=== PATIENT | female | born 2000 | race Caucasian/White ===

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

== ENCOUNTER 2018-12-15 05:44 | Day surgery (SDC) | payer OTHER ==
[2018-12-03 10:54] VITALS: BMI 25.0
--- NOTE | 2018-12-15 09:13 | HP ---
Satellite [facility] - Chief Complaint Chief Complaint: internal derangement left knee History Source: Patient - Past Medical History Allergies/Adverse Reactions: Allergies Allergy/AdvReac Type Severity Reaction Status Date / Time No Known Allergies Allergy Verified 12/15/18 08:30 ...LMP Comment: UNSURE OF LMP, ON DEPRO-PROVERA - Current Medications Current Medications: Home Medications Medication Instructions Recorded Albuterol Sulfate Inhaler - 1 - 2 inh PO QID PRN 09/22/14 [Ventolin HFA Inhaler -] Deproprovera 1 cartridge IM ASDIR 12/03/18 Satellite Physical Exam - Physical Examination Vital Signs: Vital Signs Period Temp Pulse Resp BP Sys/Bone Pulse Ox Last 24 Hr 98.4 F-98.4 F 75-75 20-20 116-116/64-64 98 Extremities: Other (+ joint line tenderness) Satellite Impression/Plan - Impression/Plan Impression: internal derangeemnt left knee Operative Procedure: arthroscopy left knee Date to be Performed: 12/15/18
[2018-12-15] MEDS ORDERED: MIDAZOLAM HCL 2 MG/2 ML SINGLE DOSE VIAL ONE (09:19)
[2018-12-15] MEDS ORDERED: PROPOFOL 20 ML ONE (09:19)
[2018-12-15] MEDS ORDERED: LIDOCAINE HCL/PF 2% SDV 5ML VIAL ONE (09:21)
[2018-12-15] MEDS ORDERED: KETOROLAC TROMETHAMINE 30 MG/1 ML VIAL ONE (09:21)
[2018-12-15] MEDS ORDERED: DEXAMETHASONE SOD PHOSPHATE 4 MG/1 ML VIAL ONE (09:21)
[2018-12-15] MEDS ORDERED: ONDANSETRON 4 MG/2 ML VIAL IVPUSH PRN (09:31)
[2018-12-15] MEDS ORDERED: oxyCODONE HCL 5 MG TABLET PO PRN (09:31)
[2018-12-15] MEDS ORDERED: BUPIVACAINE HCL/PF 0.5% (5MG/ML) 10 ML VIAL ONE ×2 (09:35→12:36)
[2018-12-15] MEDS ORDERED: LIDOCAINE 1%-EPI 1:100,000 30 ML MDV IJ ONE (09:35)
[2018-12-15] MEDS ORDERED: LACTATED RINGERS SOLUTION 1,000 ML IV SCH (09:45)
[2018-12-15] MEDS ORDERED: BUPIVACAINE HCL/PF (5 MG/ML) 30 ML VIAL IJ ONE (10:04)
[2018-12-15] MEDS ORDERED: LIDOCAINE 1%/EPI 1:100000 (20 ML MULTI DOSE VIAL) IJ ONE (10:04)
--- NOTE | 2018-12-15 11:14 | OP ---
DATE OF OPERATION: 12/15/2018 PREOPERATIVE DIAGNOSIS: Internal derangement of the left knee. POSTOPERATIVE DIAGNOSIS: Internal derangement of the left knee. PROCEDURE: Left knee arthroscopy with synovectomy. SURGICAL ATTENDING: Donato Taylor MD ANESTHESIA: General with LMA. CLOSURE: Nylon 4-0. COMPLICATIONS: None. CONDITION: To recovery room in stable condition. DESCRIPTION OF OPERATIVE PROCEDURE: Patient taken to the operating room on December 15, 2018. General anesthesia with LMA was administered by the anesthesiologist. Left lower extremity was prepped and draped in the usual sterile fashion. The medial and lateral infrapatellar portal sites were infiltrated with 1% Xylocaine with epinephrine. Both portals were then made with a 15 blade followed by a blunt trocar. The scope was placed in the lateral infrapatellar portal and up into the suprapatellar pouch. The knee was inflated with a cocktail of 10 mL of 1% Xylocaine, 10 mL of 0.5% Marcaine and 20 mL of arthroscopic saline. After allowing the anesthetic to work in the knee then the procedure was performed. The medial and lateral gutters were visualized to be clean. The undersurface of the patella and trochlea were visualized to be intact. With valgus stress on the knee the medial compartment was entered. The medial meniscus was visualized, probed and found to be intact. The medial femoral condyle was run and found to be intact as was the medial tibial plateau. At 90 degrees the ACL was visualized and probed and found to be intact. There was a ball of synovium that had formed anteriorly in the knee anterior to the ACL and adherent to the fat pad. This was biopsied by use of a grasper and then shaved away by use of the shaver. The knee was then placed in the figure-4 position. The lateral compartment was entered and visualized to be intact. The lateral femoral condyle was run and found to be intact as was the lateral tibial plateau. The rest of the synovium and the rest of the knee looked normal. The knee was irrigated with copious amounts of irrigation. The fluid was drained from the knee. Both portals were closed using 4-0 nylon. Prior to pulling the scope trocar 20 mL of 0.5% Marcaine was infused into the knee for postoperative analgesia. A sterile pressure dressing was placed over the knee. Patient awakened from anesthesia and transferred to recovery in stable condition. No complications. Estimated blood loss negligible. DONATO TAYLOR M.D. JUAN/[id number]
--- NOTE | 2018-12-15 11:50 | OP ---
Operative Note - Note: Operative Date: 12/15/18 ([facility]) Pre-Operative Diagnosis: left knee internal derangement Operation: left knee arthroscopy with synovectomy Post-Operative Diagnosis: Same as Pre-op Surgeon: Donato Taylor Anesthesiologist/PRODUCTION TESTER: Jf Jay Anesthesia: General, Local Specimens Removed: shavings Estimated Blood Loss (mls): 5 Operative Report Dictated: Yes
[2018-12-15 12:35] VITALS: BP 123/66; PULSE 56; TEMP 97.5
[2018-12-15] MEDS ORDERED: LIDOCAINE HCL 1%, 10 MG/ML (20ML VIAL) ONE (12:36)
--- NOTE | 2018-12-17 11:16 | PATH ---
Surgical Pathology Report Patient Name: JAZZMINE CONWAY Med. Rec. #: [id number] /Age/Gender: 2000 (Age: 17) / F Account: [id number] Location: [facility] SURGICAL Taken: 12/15/2018 Received: 12/15/2018 Reported: 12/17/2018 Physicians: Donato Taylor M.D. Specimen(s) Received A: LEFT KNEE SHAVINGS B: SYNOVIAL BIOPSY Clinical History Left knee tear, rule out PVNS Final Diagnosis A. LEFT KNEE SHAVINGS: FRAGMENTS OF SYNOVIAL TISSUE WITH FOCAL REACTIVE CHANGE. NO HISTOLOGIC EVIDENCE OF PIGMENTED VILLONODULAR SYNOVITIS (PVNS). B. SYNOVIAL BIOPSY: FIBROSYNOVIAL TISSUE SHOWING INCREASED VASCULARITY, FOCAL DEGENERATION AND FIBROSIS. NO HISTOLOGIC EVIDENCE OF PIGMENTED VILLONODULAR SYNOVITIS (PVNS). Electronically Signed Priyanka Bradley M.D. Gross Description A. Received in formalin, labeled "left knee shavings," is a 4.0 x 3.5 x 0.4 cm. aggregate of garcia-yellow soft tissue fragments. A sales representative metals portion is submitted in one cassette. B. Received in formalin labeled "synovial biopsy," are 2 garcia-yellow tissue fragments measuring 0.6 and 0.7 cm in greatest dimension. The specimens are submitted in toto in one cassette. 12/15/201812/15/2018
== END 2018-12-15 12:30 | disposition home or self-care (01) ==
LOC: JASU-SURG 05:44
PROVIDERS: ATTEND Orthopaedic Surgery
PROC: 0SBD4ZZ Excision of Left Knee Joint, Percutaneous Endoscopic Approach (ICD-10-PCS; principal; 2018-12-15 09:30)
DX: M23.8X2 Other internal derangements of left knee (principal); M65.862 Other synovitis and tenosynovitis, left lower leg
CPT/HCPCS: 84703; 88304-TC; 94760

== ENCOUNTER 2021-10-23 09:21 | Emergency (ER) | payer OTHER ==
[2021-10-23 09:31] VITALS: BP 120/71; PULSE 64; TEMP 98.1; BMI 23.6
[2021-10-23] MEDS ORDERED: DICYCLOMINE HCL 20 MG TABLET PO ONE (09:43)
[2021-10-23] MEDS ORDERED: PANTOPRAZOLE SODIUM 40 MG VIAL IVPB ONE (09:43)
[2021-10-23] MEDS ORDERED: SODIUM CHLORIDE 1,000 ML IV STA (09:43)
[2021-10-23] MEDS ORDERED: ONDANSETRON 4 MG/2 ML VIAL IVPUSH ONE (09:43)
[2021-10-23] MEDS ORDERED: ONDANSETRON 4 MG/2 ML VIAL ONE (10:18)
[2021-10-23] MEDS ORDERED: DICYCLOMINE HCL 10 MG CAPSULE ONE (10:18)
[2021-10-23] MEDS ORDERED: PANTOPRAZOLE SODIUM 40 MG/100 ML BAG IVPB ONE (10:18)
[2021-10-23 10:40] LABS: BASO % 0.2 % (0-2.0); EOS % 4.8 % (0-4.5); HEMATOCRIT 42.9 % (32.4-45.2); HEMOGLOBIN 14.3 GM/dL (10.7-15.3); LYMPH % 16.6 % (8-40); MCHC 33.3 g/dl (32.0-36.0); MEAN PLT VOLUME 7.9 fl (7.5-11.1); MONO % 5.1 % (3.8-10.2); NEUT % 73.3 % (42.8-82.8); PLATELET COUNT 170 10^3/uL (134-434); RDW 13.5 % (11.6-15.6); WHITE BLOOD COUNT 9.1 K/mm3 (4.0-10.0)
[2021-10-23 10:44] LABS: URINE APPEARANCE CLEAR; URINE BILIRUBIN NEGATIVE (NEGATIVE); URINE COLOR YELLOW; URINE GLUCOSE (UA) NEGATIVE (NEGATIVE); URINE KETONE NEGATIVE (NEGATIVE); URINE LEUK ESTERASE NEGATIVE (NEGATIVE); URINE NITRITE NEGATIVE (NEGATIVE); URINE PROTEIN NEGATIVE (NEGATIVE); URINE UROBILINOGEN 0.2 mg/dL (0.2-1.0)
[2021-10-23 10:45] LABS: HCG,QUALITATIVE URINE Negative
[2021-10-23 10:48] LABS: INR 1.09 (0.83-1.09); PROTHROMBIN TIME (PATIENT) 12.5 SEC (9.7-13.0)
[2021-10-23 10:50] LABS: ACTIVATED PTT 34.2 SECONDS (25.2-36.5)
[2021-10-23 11:00] LABS: CALCIUM 9.5 mg/dL (8.5-10.1)
[2021-10-23 11:01] LABS: BLOOD UREA NITROGEN 12.6 mg/dL (7-18)
[2021-10-23 11:03] LABS: CREATININE 0.8 mg/dL (0.55-1.3)
[2021-10-23 11:04] LABS: TOT PROT 7.2 g/dl (6.4-8.2)
[2021-10-23 11:05] LABS: BILIRUBIN,TOTAL 0.5 mg/dL (0.2-1)
== END 2021-10-23 15:47 | disposition home or self-care (01) ==
LOC: JER 09:21
PROC: 3E033GC Introduction of Other Therapeutic Substance into Peripheral Vein, Percutaneous Approach (ICD-10-PCS; principal; 2021-10-23)
DX: R19.7 Diarrhea, unspecified (principal)
CPT/HCPCS: 36415; 80053; 81003; 83690; 83735; 84100; 84439; 84443; 84703; 85025; 85610; 85730; 86707; 86708; 86709; 87086; 87350; 87491; 87517; 87591; 99284-25

== ENCOUNTER 2022-01-09 17:16 | Emergency (ER) | payer OTHER ==
[2022-01-09 17:26] VITALS: TEMP 98.1; BMI 25.0
[2022-01-09] MEDS ORDERED: SODIUM CHLORIDE 1,000 ML IV STA (17:43)
[2022-01-09] MEDS ORDERED: ONDANSETRON 4 MG/2 ML VIAL IVPUSH ONE (17:43)
[2022-01-09] MEDS ORDERED: ACETAMINOPHEN 1000 MG/100 ML BAG IVPB ONE (18:00)
[2022-01-09] MEDS ORDERED: ACETAMINOPHEN INJECTION 100 ML IVPB ONE (18:27)
[2022-01-09 19:07] LABS: URINE APPEARANCE CLEAR; URINE BILIRUBIN NEGATIVE (NEGATIVE); URINE COLOR YELLOW; URINE GLUCOSE (UA) NEGATIVE (NEGATIVE); URINE KETONE NEGATIVE (NEGATIVE); URINE LEUK ESTERASE NEGATIVE (NEGATIVE); URINE NITRITE NEGATIVE (NEGATIVE); URINE PROTEIN NEGATIVE (NEGATIVE); URINE UROBILINOGEN 0.2 mg/dL (0.2-1.0)
[2022-01-09 19:10] LABS: HCG,QUALITATIVE URINE Negative
[2022-01-09 20:05] LABS: CALCIUM 9.4 mg/dL (8.5-10.1)
[2022-01-09 20:06] LABS: BLOOD UREA NITROGEN 15.8 mg/dL (7-18)
[2022-01-09 20:08] LABS: CREATININE 0.7 mg/dL (0.55-1.3)
[2022-01-09 20:10] LABS: BILIRUBIN,TOTAL 0.4 mg/dL (0.2-1); TOT PROT 7.2 g/dl (6.4-8.2)
[2022-01-09 20:12] LABS: BASO % 0.4 % (0-2.0); EOS % 2.6 % (0-4.5); HEMATOCRIT 43.3 % (32.4-45.2); HEMOGLOBIN 14.4 GM/dL (10.7-15.3); LYMPH % 26.2 % (8-40); MCH 27.1 pg (25.7-33.7); MCHC 33.2 g/dl (32.0-36.0); MEAN CELL VOLUME 81.7 fl (80-96); MEAN PLT VOLUME 8.1 fl (7.5-11.1); MONO % 6.8 % (3.8-10.2); PLATELET COUNT 197 10^3/uL (134-434); RDW 13.9 % (11.6-15.6); WHITE BLOOD COUNT 7.6 K/mm3 (4.0-10.0)
[2022-01-09 21:32] VITALS: BP 110/62; PULSE 72
== END 2022-01-09 21:32 | disposition home or self-care (01) ==
LOC: JER 17:16
PROC: 3E0333Z Introduction of Anti-inflammatory into Peripheral Vein, Percutaneous Approach (ICD-10-PCS; principal; 2022-01-09)
PROC: 3E0337Z Introduction of Electrolytic and Water Balance Substance into Peripheral Vein, Percutaneous Approach (ICD-10-PCS; 2022-01-09)
DX: A09 Infectious gastroenteritis and colitis, unspecified (principal)
CPT/HCPCS: 36415; 80053; 81003; 83690; 83735; 84703; 85025; 87086; 87491; 87591; 99284-25

== ENCOUNTER 2023-04-28 21:26 | Emergency (ER) | payer OTHER ==
[2023-04-28 21:36] VITALS: BP 113/74; PULSE 77; RESP 18; TEMP 98.2; BMI 24.6
[2023-04-28] MEDS ORDERED: DIPHTH,PERTUSS(ACELL),TET 0.5 ML DISP.SYRIN IM ONE ×2 (22:24→22:49)
== END 2023-04-28 22:56 | disposition home or self-care (01) ==
LOC: JERFT 21:26
PROC: 3E0234Z Introduction of Serum, Toxoid and Vaccine into Muscle, Percutaneous Approach (ICD-10-PCS; principal; 2023-04-28)
DX: S61.217A Laceration without foreign body of left little finger without damage to nail, initial encounter (principal); R22.32 Localized swelling, mass and lump, left upper limb; W23.0XXA Caught, crushed, jammed, or pinched between moving objects, initial encounter
CPT/HCPCS: 73130-TC-LT-FY; 90715; 99283-25

== ENCOUNTER 2023-05-08 16:11 | Emergency (ER) | payer OTHER ==
[2023-05-08 16:22] VITALS: BP 115/70; PULSE 70; RESP 18; TEMP 97; BMI 25.4
== END 2023-05-08 16:50 | disposition home or self-care (01) ==
LOC: JER 16:11 → JERFT 16:11
DX: Z48.02 Encounter for removal of sutures (principal)
CPT/HCPCS: 99281-25